=== PATIENT | male | born 1970 | race Hispanic/Latino ===

== ENCOUNTER 2023-06-14 06:00 | Day surgery (SDC) | payer OTHER, MEDICAID ==
[2023-06-12 16:17] VITALS: BP 127/78; PULSE 18; RESP 18
[~2023-06-14] VITALS: Ht 168.9 cm; Wt 131.0 kg
[~2023-06-14 06:00] MED LIST: ALBU90AE2 IH; CETI10TA57 PO; FAMO20TA8 PO; FENT12PAT TD; FLUT16H NASAL; FLUT1AER IH; LORA0.5T83 PO; MONT-39 PO; OLME5TAB32 PO; OMEP40CA21 PO; ONDA4TAB10 PO; OXYC5TAB3 PO; PILO5POW2 MC; POLY119P2 PO; PREG150C PO; SERT20OR6 PO
[2023-06-14 06:15] VITALS: BP 131/92; PULSE 100; RESP 16
[2023-06-14] MEDS ORDERED: PROPOFOL 10 MG/ML 20ML VIAL IV ONE ×3 (07:20→07:48)
[2023-06-14 08:38] VITALS: BP 134/75; PULSE 69; RESP 16
[2023-06-14 08:53] VITALS: PULSE 62; RESP 16
[2023-06-14 09:08] VITALS: PULSE 65; RESP 16
== END 2023-06-14 09:10 | disposition home or self-care (01) ==
LOC: ENDO 06:00 → DAH 06:00 → ENDO 09:10
PROVIDERS: ATTEND Internal Medicine Gastroenterology
DX: Z12.11 Encounter for screening for malignant neoplasm of colon (principal); D12.2 Benign neoplasm of ascending colon; D12.3 Benign neoplasm of transverse colon; K59.09 Other constipation; E78.5 Hyperlipidemia, unspecified; I10 Essential (primary) hypertension; F41.9 Anxiety disorder, unspecified; J45.909 Unspecified asthma, uncomplicated; Z90.49 Acquired absence of other specified parts of digestive tract; Z98.890 Other specified postprocedural states; Z85.89 Personal history of malignant neoplasm of other organs and systems; Z79.899 Other long term (current) drug therapy
CPT/HCPCS: 45380; 45385; J2704 ×3; A4620; A4215 ×2; A4223; A7002; A4222; A4221; A4663; A4216; J7030; A4606; J3490